=== PATIENT | female | born 1960 | race Caucasian/White ===

== ENCOUNTER → 2018-08-01 | Outpatient (CLI) | payer OTHER ==
[~2018-08-01] MED LIST: FLEXERIL PO; MEDROLDOSEPACK PO; NORCO 5-325 TA1 EACH PO
== END ==
LOC: RAD 15:04
DX: R04.2 Hemoptysis (principal)

== ENCOUNTER 2018-08-04 16:44 | Emergency (ER) | payer OTHER ==
[~2018-08-04] VITALS: Ht 160 cm; Wt 45.4 kg
[~2018-08-04 16:44] MED LIST changes: -MEDROLDOSEPACK PO
[2018-08-04] MEDS ORDERED: MEDROLDOSEPACK PO (18:20)
[2018-08-04 18:35] VITALS: BP 164/54
== END 2018-08-04 18:36 | disposition home or self-care (01) ==
LOC: ER 16:44
DX: R21 Rash and other nonspecific skin eruption (principal); T50.995A Adverse effect of other drugs, medicaments and biological substances, initial encounter; Z88.1 Allergy status to other antibiotic agents; Z88.8 Allergy status to other drugs, medicaments and biological substances; Z88.6 Allergy status to analgesic agent; Z88.0 Allergy status to penicillin; Z91.048 Other nonmedicinal substance allergy status; Z88.2 Allergy status to sulfonamides; Y92.89 Other specified places as the place of occurrence of the external cause

== ENCOUNTER 2018-10-12 08:26 | Emergency (ER) | payer OTHER ==
[~2018-10-12] VITALS: Ht 160 cm; Wt 54.4 kg
[~2018-10-12 08:26] MED LIST changes: +MEDROLDOSEPACK PO
[2018-10-12] MEDS ORDERED: SENNA-DOCUSATE1 EAC1 PO (12:17)
[2018-10-12] MEDS ORDERED: NORCO 5-325 TA1 EACH PO (12:17)
[2018-10-12 12:21] VITALS: BP 148/66
== END 2018-10-12 12:25 | disposition home or self-care (01) ==
LOC: ER 08:26
DX: S80.01XA Contusion of right knee, initial encounter (principal); S40.011A Contusion of right shoulder, initial encounter; M54.5 Low back pain; Z88.1 Allergy status to other antibiotic agents; Z88.8 Allergy status to other drugs, medicaments and biological substances; Z88.6 Allergy status to analgesic agent; Z88.0 Allergy status to penicillin; Z91.048 Other nonmedicinal substance allergy status; Z88.2 Allergy status to sulfonamides; W00.0XXA Fall on same level due to ice and snow, initial encounter; Y92.89 Other specified places as the place of occurrence of the external cause; Y93.89 Activity, other specified; Y99.8 Other external cause status

== ENCOUNTER → 2019-06-07 | Outpatient (CLI) | payer OTHER ==
[~2019-06-07] MED LIST changes: +EPIDIOLEX100 MG/1 M PO; +SENNA-DOCUSATE1 EAC1 PO
== END ==
LOC: RAD 08:21
DX: J44.9 Chronic obstructive pulmonary disease, unspecified (principal); Z88.1 Allergy status to other antibiotic agents; Z88.2 Allergy status to sulfonamides; Z88.8 Allergy status to other drugs, medicaments and biological substances

== ENCOUNTER → 2019-06-14 | Outpatient (CLI) | payer OTHER ==
[~2019-06-14] VITALS: Ht 165.1 cm; Wt 59.0 kg
[2019-06-14 13:27] VITALS: BP 129/68
--- NOTE | 2019-06-14 13:47 | NUR ---
Pain Clinic Assessment: 1. History of Osteoarthritis: SPINE WRISTS/HANDS History of Rheumatoid Arthritis: NO 2. Height: 5 ft. 5 in. 165.1 cm. Weight: 130.0 lb. oz. 58.968 kg. Patient's BMI: 21.6 3. Vital Signs: BP: 129/68 Pulse: 102 Resp: 14 Temp: 02 Sat: 98 ECG Mon: 4. Pain Intensity: 9-10 5. Fall Risk: Dizziness: N Needs help standing or walking: N Fallen in the last 3 months: Y Fall risk comments: 6. Patient on Blood Thinner: None 7. History of Hypertension: N 8. Opioid Therapy greater than 6 weeks: Opiate Contract Signed: 9. Risk Assessment Tool Provided: 10. Functional Assessment Tool: 11. Recreational Drug Use: Past greater than 3 mos Drug Type: "EVERYTHING" Tobacco Use: Current Every Day Smoker Tobacco Type: Cigarettes Amount or Packs/day: 0.2 How Many Years: 35 Alcohol Use: No Frequency: Quant:
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
== END ==
LOC: PAIN 07:18
DX: M54.5 Low back pain (principal); Z88.8 Allergy status to other drugs, medicaments and biological substances; Z79.899 Other long term (current) drug therapy; Z79.4 Long term (current) use of insulin

== ENCOUNTER → 2020-09-25 | Outpatient (CLI) | payer MEDICARE | LOC: SJCVC 12:41 | PROVIDERS: ATTEND Internal Medicine | DX: R94.31 Abnormal electrocardiogram [ECG] [EKG] (principal); R07.89 Other chest pain; E78.5 Hyperlipidemia, unspecified; R55 Syncope and collapse; J44.9 Chronic obstructive pulmonary disease, unspecified; E11.40 Type 2 diabetes mellitus with diabetic neuropathy, unspecified; Z87.891 Personal history of nicotine dependence; Z79.899 Other long term (current) drug therapy; Z88.0 Allergy status to penicillin; Z88.1 Allergy status to other antibiotic agents; Z88.8 Allergy status to other drugs, medicaments and biological substances; Z88.2 Allergy status to sulfonamides ==

== ENCOUNTER → 2020-10-01 | Outpatient (CLI) | payer OTHER | LOC: SJCVCIMAG 10:11 | PROVIDERS: ATTEND Internal Medicine | DX: I07.1 Rheumatic tricuspid insufficiency (principal); R00.0 Tachycardia, unspecified; I49.3 Ventricular premature depolarization; I10 Essential (primary) hypertension; R00.2 Palpitations; J44.9 Chronic obstructive pulmonary disease, unspecified; Z88.8 Allergy status to other drugs, medicaments and biological substances; Z98.890 Other specified postprocedural states; Z87.891 Personal history of nicotine dependence ==

== ENCOUNTER → 2020-10-22 | Outpatient (CLI) | payer OTHER | LOC: SJCVC 10:51 | PROVIDERS: ATTEND Internal Medicine | DX: R00.2 Palpitations (principal); I51.89 Other ill-defined heart diseases; J44.9 Chronic obstructive pulmonary disease, unspecified; E11.40 Type 2 diabetes mellitus with diabetic neuropathy, unspecified; F32.9 Major depressive disorder, single episode, unspecified; Z87.891 Personal history of nicotine dependence; Z79.899 Other long term (current) drug therapy; Z88.1 Allergy status to other antibiotic agents; Z88.0 Allergy status to penicillin; Z88.5 Allergy status to narcotic agent; Z88.6 Allergy status to analgesic agent; Z88.2 Allergy status to sulfonamides; Z88.8 Allergy status to other drugs, medicaments and biological substances ==

== ENCOUNTER → 2020-10-30 | Outpatient (CLI) | payer OTHER ==
[~2020-10-30] MED LIST changes: +DEXAMETHASONE 44 M1 PO; +DILTIAZEM ER120 MG PO
== END ==
LOC: SJCVC 16:07
PROVIDERS: ATTEND Internal Medicine Cardiovascular Disease
DX: R55 Syncope and collapse (principal); R06.00 Dyspnea, unspecified; J44.9 Chronic obstructive pulmonary disease, unspecified; E11.40 Type 2 diabetes mellitus with diabetic neuropathy, unspecified; F32.9 Major depressive disorder, single episode, unspecified; Z87.891 Personal history of nicotine dependence; Z79.899 Other long term (current) drug therapy; Z88.1 Allergy status to other antibiotic agents; Z88.0 Allergy status to penicillin; Z88.5 Allergy status to narcotic agent; Z88.8 Allergy status to other drugs, medicaments and biological substances; Z88.2 Allergy status to sulfonamides

== ENCOUNTER 2020-11-01 17:52 | Emergency (ER) | payer OTHER ==
[~2020-11-01] VITALS: Ht 162.6 cm; Wt 59.0 kg
[~2020-11-01 17:52] MED LIST changes: -DEXAMETHASONE 44 M1 PO; -DILTIAZEM ER120 MG PO
[2020-11-01] MEDS ORDERED: DILTIAZEM ER120 MG PO (20:01)
[2020-11-01] MEDS ORDERED: DEXAMETHASONE 44 M1 PO (20:08)
[2020-11-01 20:22] VITALS: BP 127/63
== END 2020-11-01 20:33 | disposition home or self-care (01) ==
LOC: ER 17:52
DX: L50.9 Urticaria, unspecified (principal); I10 Essential (primary) hypertension; J44.9 Chronic obstructive pulmonary disease, unspecified; F17.210 Nicotine dependence, cigarettes, uncomplicated; Z88.1 Allergy status to other antibiotic agents; Z88.2 Allergy status to sulfonamides; Z88.8 Allergy status to other drugs, medicaments and biological substances; Z88.0 Allergy status to penicillin; Z91.048 Other nonmedicinal substance allergy status

== ENCOUNTER 2020-11-03 11:34 | Emergency (ER) | payer OTHER ==
[~2020-11-03] VITALS: Ht 162.6 cm; Wt 59.0 kg
[~2020-11-03 11:34] MED LIST changes: +DEXAMETHASONE 44 M1 PO; +DILTIAZEM ER120 MG PO
[2020-11-03 13:35] VITALS: BP 135/53
== END 2020-11-03 13:35 | disposition home or self-care (01) ==
LOC: ER 11:34
DX: R21 Rash and other nonspecific skin eruption (principal); I10 Essential (primary) hypertension; J44.9 Chronic obstructive pulmonary disease, unspecified; F17.210 Nicotine dependence, cigarettes, uncomplicated; Z88.1 Allergy status to other antibiotic agents; Z88.0 Allergy status to penicillin; Z88.2 Allergy status to sulfonamides; Z88.8 Allergy status to other drugs, medicaments and biological substances; Z91.048 Other nonmedicinal substance allergy status

== ENCOUNTER → 2020-11-12 | Outpatient (CLI) | payer OTHER ==
[~2020-11-12] MED LIST changes: +BROVANA15 MCG/2 M INH; +EPIPEN0.3 MG/0.1 IM; +PROAIR HFA8.5 GM INH; +SLEEP AID50 MG PO; +TOPROL XL25 MG PO
[2020-11-12 11:18] VITALS: BP 105/47
--- NOTE | 2020-11-14 16:26 | P ---
[facility] [address] PROCEDURE REPORT Name: CHANELLE ANDERSON Room #: REG DEISYFred Reyes#: [id number] Admission: 11/12/20 Attend Phys: Gurpreet Thomas MD Discharge: Date of : 58 Report #: [id number] THIS REPORT FOR: cc: Farzaneh Echeverria MD, Nora P. MD Couchonnal, Luis F. MD ~ DATE OF SERVICE: 11/12/2020 IMPLANTABLE LOOP RECORDER INSERTION PREOPERATIVE DIAGNOSIS: Syncope. POSTOPERATIVE DIAGNOSIS: Syncope. DESCRIPTION OF PROCEDURE: The patient underwent informed consent. She was prepped and draped in a sterile fashion and injected lidocaine at the incision site. Incision was made. The implantable loop recorder was injected under the skin. Single suture was performed and surgical glue and a dressing was placed. There were no procedure related complications. The implanted device was a [employer]tronic LINQ, serial #[id number]. CONCLUSIONS: Successful implantation of an implantable loop recorder. <ELECTRONICALLY SIGNED> By: Gurpreet Thomas MD 11/14/20 1626 0824 0839 Gurpreet Thomas MD /nt
== END | disposition home or self-care (01) ==
LOC: CATH 10:24
PROVIDERS: ATTEND Internal Medicine Cardiovascular Disease
DX: R55 Syncope and collapse (principal); Z98.890 Other specified postprocedural states; Z79.899 Other long term (current) drug therapy; Z79.01 Long term (current) use of anticoagulants; Z88.0 Allergy status to penicillin; Z88.2 Allergy status to sulfonamides; Z88.8 Allergy status to other drugs, medicaments and biological substances

== ENCOUNTER → 2020-12-09 | Outpatient (CLI) | payer OTHER | LOC: SJCVC 10:46 | PROVIDERS: ATTEND Internal Medicine | DX: I10 Essential (primary) hypertension (principal); R00.2 Palpitations; R55 Syncope and collapse; J44.9 Chronic obstructive pulmonary disease, unspecified; Z87.891 Personal history of nicotine dependence; Z88.1 Allergy status to other antibiotic agents; Z88.0 Allergy status to penicillin; Z88.5 Allergy status to narcotic agent; Z88.8 Allergy status to other drugs, medicaments and biological substances; Z79.899 Other long term (current) drug therapy ==

== ENCOUNTER → 2021-07-23 | Outpatient (CLI) | payer OTHER | LOC: RAD 10:13 | PROVIDERS: ATTEND Internal Medicine | DX: J44.9 Chronic obstructive pulmonary disease, unspecified (principal); R06.02 Shortness of breath ==

== ENCOUNTER 2021-07-26 15:21 | Emergency (ER) | payer OTHER ==
[~2021-07-26] VITALS: Ht 165.1 cm; Wt 77.1 kg
[2021-07-26 15:40] LABS: ABSOLUTE NEUTROPHILS 10.9 thou/uL (1.4-8.2); BASOPHILS 1.2 % (0.0-2.0); EOSINOPHILS 0.1 % (0.0-3.0); HEMATOCRIT 40.5 % (37.0-47.0); HEMOGLOBIN 13.3 gm/dL (12.0-15.0); MCH 29.8 pg (26.0-34.0); MCHC 32.8 g/dL (28.0-37.0); MCV 90.7 fL (80.0-100.0); MONOCYTES 4.7 % (1.0-8.0); PLATELET COUNT 465 thou/uL (150-400); RBC 4.46 mil/uL (4.20-5.00); RDW 15.6 % (10.5-14.5); WBC 16.6 thou/uL (4.0-11.0)
[2021-07-26 16:31] LABS: ANION GAP 12 mmol/L (7-16); BUN 15 mg/dL (7-18); CALCIUM 9.2 mg/dL (8.5-10.1); CHLORIDE 102 mmol/L (98-107); CO2 22 mmol/L (21-32); GLUCOSE 120 mg/dL (74-106); POTASSIUM 3.9 mmol/L (3.5-5.1); SODIUM 136 mmol/L (136-145)
[2021-07-26 16:37] LABS: ALBUMIN 3.8 g/dL (3.4-5.0); SALICYLATE 6.5 mg/dL (2.8-20.0); SGOT 26 U/L (15-37); SGPT 50 U/L (14-59); TOTAL BILIRUBIN 0.3 mg/dL (0.2-1.0); TOTAL PROTEIN 8.4 g/dL (6.4-8.2)
[2021-07-26 17:01] LABS: URINE BILIRUBIN NEGATIVE (Negative); URINE BLOOD NEGATIVE (Negative); URINE CLARITY CLEAR; URINE COLOR YELLOW; URINE GLUCOSE-RANDOM* NEGATIVE (Negative); URINE KETONES NEGATIVE (Negative); URINE LEUKOCYTES-REFLEX TRACE (Negative); URINE NITRITE-REFLEX NEGATIVE (Negative); URINE PROTEIN (DIPSTICK) TRACE (Negative); URINE UROBILINOGEN 0.2 E.U./dl (0.2-1.0)
[2021-07-26 17:10] LABS: AMP/METHAMP Negative (Negative); BARBITURATES Negative (Negative); BENZODIAZEPINES Negative (Negative); COCAINE Negative (Negative); METHADONE Negative (Negative); OPIATES Negative (Negative); PCP Negative (Negative)
[2021-07-26 17:44] VITALS: BP 144/69
--- NOTE | 2021-07-29 07:10 | EKG ---
[address] [address] ELECTROCARDIOGRAM REPORT Name: MARIEE CHANELLE SIMON Room #: [facility]P [facility]#: [id number] Admission: 07/26/21 Attend Phys: Discharge: 07/26/21 Date of : 58 Report #: [id number] [facility] ED Test Date: 2021-07-26 Test Time: 15:10:36 Pat Name: CHANELLE SIMONDepartment: Room: Gender: F Pharmacy Technician Assistant: deonte : 1960 Requested By: Curtis Gann Order Number: [id number] MD: Mahesh Mccartney Measurements Intervals [place] Rate: 86 P: DE: QRS: 72 QRSD: 102 T: 56 QT: 326 QTc: 390 Interpretive Statements NSR Nonspecific T abnrm, anterolateral leads Artifact in lead(s) II,III,aVR,aVL,aVF,V1,V3,V4,V5 and baseline wander in lead(s) II,III,aVF,V1,V6 No previous ECG available for comparison Electronically Signed On 07-29-2021 7:10:40 [employer]OMER [employer]PPORT PROFESSIONAL by Mahesh Mccartney [email or web address] <ELECTRONICALLY SIGNED> By: Mahesh Mccartney MD, FACC 07/29/21 0710 09 09 Mahesh Mccartney MD, FAC /EPI
== END 2021-07-26 17:50 | disposition home or self-care (01) ==
LOC: ER 15:21
PROVIDERS: Emergency Medicine
DX: F41.9 Anxiety disorder, unspecified (principal); Z20.822 Contact with and (suspected) exposure to COVID-19; I10 Essential (primary) hypertension; J44.9 Chronic obstructive pulmonary disease, unspecified; F17.210 Nicotine dependence, cigarettes, uncomplicated; Z98.890 Other specified postprocedural states; Z79.51 Long term (current) use of inhaled steroids; Z79.891 Long term (current) use of opiate analgesic; Z79.899 Other long term (current) drug therapy; Z88.6 Allergy status to analgesic agent; Z88.1 Allergy status to other antibiotic agents; Z88.5 Allergy status to narcotic agent; Z88.0 Allergy status to penicillin; Z88.2 Allergy status to sulfonamides; Z88.7 Allergy status to serum and vaccine; Z88.8 Allergy status to other drugs, medicaments and biological substances; Z91.048 Other nonmedicinal substance allergy status